=== PATIENT | female | born 1995 | race Caucasian/White ===

== ENCOUNTER 2020-11-15 12:43 | Emergency (ER) | payer OTHER ==
[~2020-11-15] VITALS: Ht 157.5 cm; Wt 54.0 kg
[2020-11-15 13:05] VITALS: BP 117/69
--- NOTE | 2020-11-15 13:10 | NUR ---
PT TO AWAIT IN LOBBY
--- NOTE | 2020-11-15 13:49 | NUR ---
PT TAKEN TO XRAY VIA W/C
--- NOTE | 2020-11-15 14:36 | NUR ---
DR SAID EXAMINING PT
--- NOTE | 2020-11-15 15:18 | NUR ---
Note julietteone in EDM - 11/15/20 at 1702 by [email or web address] Patient discharged with v/s stable. Written and verbal after care instructions explained. Patient left with D/C paperwork. Patient alert, oriented and verbalized understanding of instructions. Ambulatory with steady gait. All questions addressed prior to discharge. ID band removed. Patient advised to follow up with PMD. Opportunity to ask questions provided and answered.
[2020-11-15 17:00] VITALS: BP 117/69
--- NOTE | 2020-11-15 17:00 | NUR ---
Patient discharged with v/s stable. Written and verbal after care instructions given and explained. Patient alert, oriented and verbalized understanding of instructions. Ambulatory with steady gait. All questions addressed prior to discharge. ID band removed. Patient advised to follow up with PMD. Opportunity to ask questions provided and answered.
== END 2020-11-15 15:18 | disposition home or self-care (01) ==
LOC: MED 12:43
DX: T17.920A Food in respiratory tract, part unspecified causing asphyxiation, initial encounter (principal); X58.XXXA Exposure to other specified factors, initial encounter; Y93.89 Activity, other specified; Y92.89 Other specified places as the place of occurrence of the external cause; Y99.8 Other external cause status
CPT/HCPCS: 71045; 99283